=== PATIENT | male | born 1995 | race Two or more races ===

== ENCOUNTER 2021-12-13 19:06 | Emergency (ER) | payer OTHER ==
[~2021-12-13] VITALS: Ht 185.4 cm; Wt 84.4 kg
[2021-12-13 19:20] VITALS: BP 116/81
--- NOTE | 2021-12-13 19:23 | NUR ---
TO LOBBY A/W BED AMBULATORY
--- NOTE | 2021-12-13 21:32 | NUR ---
Patient ambulated to bed 12.
--- NOTE | 2021-12-13 21:34 | NUR ---
Patient BIB by from home. C/O facial painx 1 day, cough and congestion x 1 week. Patient reported, had cough , congestion and running nose for a week, left facial pain last night, denies blurred vision, no numbness. PMHX: DENIES,
--- NOTE | 2021-12-13 22:12 | NUR ---
Dr. Kenyon examining patient.
[2021-12-13] MEDS ORDERED: IBUP-2213 PO (22:25)
[2021-12-13] MEDS ORDERED: PSEU120T22 PO (22:25)
[2021-12-13 22:51] VITALS: BP 112/84
--- NOTE | 2021-12-13 22:51 | NUR ---
Patient discharged with v/s stable. Written and verbal after care instructions given and explained. Patient alert, oriented and verbalized understanding of instructions. Ambulatory with steady gait. All questions addressed prior to discharge. ID band removed. Patient advised to follow up with PMD. Rx of Ibuprofen and Sudafed given. Patient educated on indication of medication including possible reaction and side effects. Opportunity to ask questions provided and answered.
== END 2021-12-13 22:51 | disposition home or self-care (01) ==
LOC: MED 19:06
DX: R51.9 Headache, unspecified (principal); R05.9 Cough, unspecified; R09.81 Nasal congestion; Z79.899 Other long term (current) drug therapy
CPT/HCPCS: 99282

== ENCOUNTER 2022-12-02 01:33 | Observation (INO) | payer OTHER ==
[~2022-12-02] VITALS: Ht 188 cm; Wt 81.6 kg
[~2022-12-02 01:33] MED LIST: IBUP-2213 PO; PSEU120T22 PO
[2022-12-02 02:07] VITALS: BP 112/67
--- NOTE | 2022-12-02 02:35 | NUR ---
DR BO EXAMINING PT
[2022-12-02] MEDS ORDERED: KETOROLAC 60 MG/2 ML VIAL IM ONE (02:40)
--- NOTE | 2022-12-02 02:50 | NUR ---
TO RADIOLOGY VIA W/C
--- NOTE | 2022-12-02 03:00 | NUR ---
Patient resting in bed, A/Ox4, chest rise and fall symmetrical, no s/s of distress, on monitor.
[2022-12-02 03:07] LABS: BASOPHILS # (AUTO) 0.1 K/uL (0.00-0.22); BASOPHILS % (AUTO) 0.3 % (0.0-2.0); EOSINOPHILS # (AUTO) 0.1 K/uL (0-0.4); EOSINOPHILS % (AUTO) 0.8 % (0.0-4.0); HEMATOCRIT 45.2 % (36-52); HEMOGLOBIN 15.4 g/dL (12.0-18.0); LYMPHOCYTES # (AUTO) 0.8 K/uL (2.0-11.5); LYMPHOCYTES % (AUTO) 4.2 % (20.5-51.1); MEAN CORPUSCULAR HEMOGLOBIN 28 pg (27-31); MEAN CORPUSCULAR HGB CONC 34 g/dL (33-37); MEAN CORPUSCULAR VOLUME 83.5 fL (80-94); MONOCYTES # (AUTO) 0.9 K/uL (0.8-1.0); NEUTROPHILS # (AUTO) 16.3 K/uL (1.8-7.7); NEUTROPHILS % (AUTO) 89.7 % (42.2-75.2); PLATELET COUNT (AUTO) 223 K/uL (140-450); RED BLOOD CELL COUNT(AUTO) 5.41 MIL/uL (4.20-6.10); RED CELL DISTRIBUTION WIDTH 14.6 % (11.6-13.7); WHITE BLOOD COUNT (AUTO) 18.2 K/uL (4.8-10.8)
[2022-12-02 03:31] LABS: ALBUMIN 4.5 g/dL (3.4-5.0); ANION GAP 12.4 (8-16); CARBON DIOXIDE 30.4 mmol/L (21-32); CREATININE 1.2 mg/dL (0.6-1.3); POTASSIUM 3.8 mmol/L (3.5-5.1); TOTAL BILIRUBIN 0.8 mg/dL (0.0-1.0)
[2022-12-02] MEDS ORDERED: cefOXitin 2,000 MG in DEXTROSE 5% 50 ML IV ONE (04:25)
--- NOTE | 2022-12-02 04:40 | NUR ---
IV G18 AT RIGHT HAND ESTABLISHED Addendum: 12/02/22 at 0508 by [email or web address] MEDICATION GIVEN ORDERED. 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 VSS. ALL NEEDS MET THIS TIME. BED LOCK IN LOWEST POSITION. SIDE RAILS X1 FOR SAFETY. PT POSITIONED COMFORTABLY. NPO REINFORCED.
--- NOTE | 2022-12-02 05:00 | NUR ---
Patient resting in bed, A/Ox4, chest rise and fall symmetrical, no s/s of distress, on monitor.
[2022-12-02] MEDS ORDERED: LEVOFLOXACIN 500 MG/D5W PREMIX 100 ML IV SCH (05:05)
[2022-12-02] MEDS ORDERED: ZOLPIDEM 5 MG TAB PO PRN (05:05)
[2022-12-02] MEDS ORDERED: POTASSIUM CHLORIDE 10 MEQ TABER PO PRN (05:05)
[2022-12-02] MEDS ORDERED: ACETAMINOPHEN 325 MG TAB PO PRN (05:05)
[2022-12-02] MEDS ORDERED: ONDANSETRON 4 MG/2 ML VIAL IVP PRN (05:05)
[2022-12-02] MEDS ORDERED: NACL 0.9% 1,000 ML IV SCH (05:05)
[2022-12-02] MEDS ORDERED: KCL 20 MEQ IN 100 mL PREMIX 200 ML IV PRN (05:05)
[2022-12-02] MEDS ORDERED: MAG SULF 2000 MG/WATER PREMIX 50 ML IV PRN (05:05)
[2022-12-02] MEDS ORDERED: LORazepam 1 MG TAB PO PRN (05:05)
[2022-12-02] MEDS ORDERED: MORPHINE SULFATE 4 MG/ML SYR IVP PRN (05:05)
[2022-12-02] MEDS ORDERED: HYDROcodone/APAP 5/325 MG 1 TAB TAB PO PRN (05:05)
[2022-12-02] MEDS ORDERED: metroNIDAZOLE 500 MG/NS PREMIX 100 ML IV SCH ×2 (06:00→13:00)
--- NOTE | 2022-12-02 06:56 | NUR ---
Patient resting in bed, side rail up, A/Ox4, chest rise and fall symmetrical, no s/s of distress, on monitor.
--- NOTE | 2022-12-02 07:15 | NUR ---
REPORT FR JESICA RONDON, ALL QUESTIONS WERE ANSWERED
--- NOTE | 2022-12-02 07:30 | NUR ---
ASSUMED CARE , DENIES NEED OF PAIN MEDS, PT UPDATED WITH PLAN OF CARE
--- NOTE | 2022-12-02 09:00 | NUR ---
Admitted from , with chief complaint of ABDOMINAL PAIN , 27 y/o ,Male, Appropriate, oriented to call light, bed, phone,television, bathroom, smoking policy, visiting hours, procedures, ID bracelet on. Belongings list checked.
[2022-12-02 12:00] VITALS: BP 121/64
[2022-12-02 13:36] LABS: PROTHROMBIN TIME 10.8 secs (10.8-13.4)
[2022-12-02] MEDS ORDERED: LIDOCAINE OINTMENT 5% 35 GM TUBE TP ONE (14:09)
[2022-12-02] MEDS ORDERED: HYDROmorphone PFS 2 MG/ML SYR ONE (14:15)
[2022-12-02] MEDS ORDERED: MIDAZOLAM 2 MG/2 ML VIAL ONE (14:15)
[2022-12-02] MEDS ORDERED: BUPIVACAINE-MPF/EPI 0.25% 30 ML VIAL INJ ONE (14:17)
[2022-12-02] MEDS ORDERED: PROPOFOL 200 MG/20 ML VIAL IV ONE (14:20)
[2022-12-02] MEDS ORDERED: PHENYLEPHRINE 10 MG/ML VIAL IV ONE (14:20)
[2022-12-02] MEDS ORDERED: SEVOFLURANE 250 ML BTL INH ONE (14:20)
[2022-12-02] MEDS ORDERED: ROCURONIUM 50 MG/5 ML VIAL IV ONE (14:20)
[2022-12-02] MEDS ORDERED: DEXAMETHASONE 10 MG/ML VIAL IVP ONE (14:20)
[2022-12-02] MEDS ORDERED: GLYCOPYRROLATE 0.2 MG/ML VIAL IV ONE (14:20)
[2022-12-02] MEDS ORDERED: KETOROLAC 30 MG/ML VIAL IVP ONE (14:20)
[2022-12-02] MEDS ORDERED: ONDANSETRON 4 MG/2 ML VIAL IVP ONE (14:20)
[2022-12-02 16:00] VITALS: BP 113/63
--- NOTE | 2022-12-02 16:30 | NUR ---
RECEIVED PT FROM SURGERY ,S/P LAP APPY,AWAKE,ALERT, 3 LAP SITES DERMABANDS IN ABD CLEARN AND DRY, VSS,RESTING WELL IN BED,NO C/O PAIN,SAID HIS THROAT IS "DRY" OFFERED ICE CHIPS AND FLD FOR DINNER.CONTINUE TO MONITOR PT.
[2022-12-02 20:00] VITALS: BP 115/65
[2022-12-03] VITALS: BP 120/63
[2022-12-03 06:55] LABS: BASOPHILS % (AUTO) 0.2 % (0.0-2.0); EOSINOPHILS # (AUTO) 0.1 K/uL (0-0.4); EOSINOPHILS % (AUTO) 0.5 % (0.0-4.0); HEMATOCRIT 40.2 % (36-52); HEMOGLOBIN 13.9 g/dL (12.0-18.0); LYMPHOCYTES # (AUTO) 1.3 K/uL (2.0-11.5); LYMPHOCYTES % (AUTO) 11.1 % (20.5-51.1); MEAN CORPUSCULAR HEMOGLOBIN 28 pg (27-31); MEAN CORPUSCULAR HGB CONC 34 g/dL (33-37); MEAN CORPUSCULAR VOLUME 82.2 fL (80-94); MONOCYTES % (AUTO) 8.5 % (1.7-9.3); NEUTROPHILS # (AUTO) 9.2 K/uL (1.8-7.7); NEUTROPHILS % (AUTO) 79.7 % (42.2-75.2); PLATELET COUNT (AUTO) 206 K/uL (140-450); RED CELL DISTRIBUTION WIDTH 14.8 % (11.6-13.7); WHITE BLOOD COUNT (AUTO) 11.5 K/uL (4.8-10.8)
[2022-12-03 08:00] VITALS: BP 120/63
--- NOTE | 2022-12-03 09:02 | NUR ---
PATIENT HAS BEEN SCREENED AND CATEGORIZED LOW NUTRITION RISK. PATIENT WILL BE SEEN WITHIN 7 DAYS OF ADMISSION. 12/09/[address]
[2022-12-03] MEDS ORDERED: ACET-10509 PO (11:42)
[2022-12-03] MEDS ORDERED: ACET-8905 PO (11:43)
--- NOTE | 2022-12-03 12:30 | NUR ---
Patient was d/c by 1230. Patient IV WAS D/C with no infiltration or redness. Patient was afibrile with no s/s of pain nor distress. Patient was educated on after care instruction of recent surgery. with verbal ok
[2022-12-03 12:42] VITALS: BP 115/66
--- NOTE | 2022-12-05 12:20 | NUR ---
late entry: confirmed with RN Lianne end time is 0755 on 12/02/22
== END 2022-12-03 13:10 | disposition home or self-care (01) ==
LOC: MED 01:33 → MTU 05:11
PROVIDERS: ADMIT Student in an Organized Health Care Education/Training Program; ATTEND Student in an Organized Health Care Education/Training Program
DX: K35.80 Unspecified acute appendicitis (principal); Z20.822 Contact with and (suspected) exposure to COVID-19; D72.829 Elevated white blood cell count, unspecified
CPT/HCPCS: 36415; 44970; 74018; 74176; 80053; 82374; 83690; 85025; 85610; 85730; 86886; 86900; 86901; 87426; 88304; 96365; 96366; 96367; 96372; 99285; G0378; J0694; J1100; J1170; J1885; J1956; J2250; J2370; J2405; J2704; J3490; J7030